=== PATIENT | female | born 1945 | race Caucasian/White ===

== ENCOUNTER 2016-10-31 09:26 | Inpatient (IN) | payer OTHER ==
[~2016-10-31 09:26] MED LIST: NS IV ONE; POVIDONE-IODINE 20 ML in SODIUM CL IRRIG SOLUTION 500 ML IRR ONE; ROPIVACAINE 0.2% 80 MG, EPINEPHrine 0.2 MG, KETOROLAC TROMETHAMINE 30 MG in BAG 0 ML IU ONE; TRANEXAMIC ACID IV ONE
[2016-10-31] MEDS ORDERED: ceFAZolin 1 GM/5 ML SYR ONE (11:01)
[2016-10-31] MEDS ORDERED: LR 1,000 ML IV ONE (11:11)
[2016-10-31] MEDS ORDERED: LIDOCAINE 1% 2 ML INJ ID PRN (11:11)
[2016-10-31] MEDS ORDERED: ceFAZolin 2 GM/DEXTROSE 100 ML IV ONE (11:45)
[2016-10-31] MEDS ORDERED: FAMOTIDINE 20 MG TAB PO ONE (11:45)
[2016-10-31] MEDS ORDERED: ACETAMINOPHEN 325 MG TAB PO ONE (11:45)
[2016-10-31] MEDS ORDERED: DEXAMETHASONE 4 MG/ML VIAL IVP ONE (11:45)
--- NOTE | 2016-10-31 12:38 | PDHPUP ---
History & Physical Update H&P update statement: This history and physical update is based on an assessment of the patient which was completed after admission or registration (within 24 hours), but prior to the surgery/procedure. H&P update: H&P reviewed & patient examined, no change in patient's condition since H&P completed
[2016-10-31] MEDS ORDERED: metFORMIN HCL 500 MG TAB PO ONE (12:45)
[2016-10-31] MEDS ORDERED: MIDAZOLAM 2 MG/2 ML VIAL ONE (13:07)
[2016-10-31] MEDS ORDERED: PROPOFOL/EMULSION 500 MG/50 ML BOTTLE IV ONE ×2 (13:09)
[2016-10-31] MEDS ORDERED: fentaNYL 100 MCG/2 ML INJ ONE ×2 (13:09→13:10)
[2016-10-31] MEDS ORDERED: ONDANSETRON 4 MG/2 ML VIAL IVP PRN ×2 (14:07→15:11)
[2016-10-31] MEDS ORDERED: fentaNYL 100 MCG/2 ML INJ IVP PRN (14:07)
[2016-10-31] MEDS ORDERED: LABETALOL HCL 50 MG/10 ML SYR IVP PRN (14:07)
[2016-10-31] MEDS ORDERED: NALOXONE HCL 0.4 MG/ML INJ IVP PRN (14:07)
[2016-10-31] MEDS ORDERED: DEXAMETHASONE 4 MG/ML VIAL IVP PRN (14:07)
[2016-10-31] MEDS ORDERED: HYDROCODONE/APAP 5/325 TAB PO PRN (14:07)
[2016-10-31] MEDS ORDERED: HYDROmorphONE/DILAUDID 1 MG/ML SYR IVP PRN (14:07)
[2016-10-31] MEDS ORDERED: LR 500 ML IV PRN (14:07)
--- NOTE | 2016-10-31 14:16 | PDANEPAE ---
ANE History of Present Illness 71 y/o diabetic, htn patient for Left hip arthroplasty. ANE Past Medical History - Cardiovascular History Hx Hypertension: Yes Hx Arrhythmias: No Hx Chest Pain: No Hx Coronary Artery / Peripheral Vascular Disease: No Hx CHF / Valvular Disease: No Hx Palpitations: No Cardiovascular History Comment: TOLD HAS ENLARGED HEART 2006. 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 JUNITO USES C-PAP - Neurologic History Hx Cerebrovascular Accident: No Hx Seizures: No Hx Dementia: No - Endocrine History Hx Diabetes: Yes Endocrine History Comment: NIDDM PAST 10 YEARS - Renal History Hx Renal Disorders: No - Liver History Hx Hepatic Disorders: No - Neurological & Psychiatric Hx Hx Neurological and Psychiatric Disorders: No - Cancer History Hx Cancer: No - Congenital Disorder History Hx Congenital Disorders: No - GI History Hx Gastrointestinal Disorders: Yes Gastrointestinal History Comment: CONSTIPATION. GERD - Other Health History Other Health History: DIABETIC NEUROPATHY. LUMBAR STENOSIS. UPON AWAKENING FEELS VERY TIRED AND BONES ACHE. VARIOUS FACIAL SKIN NODULES MANAGED BY RETAIL STORE MANAGER - Chronic Pain History Chronic Pain: Yes (LT HIP) - Surgical History Prior Surgeries: RT TOTAL HIP 2010. LUMBAR LAMINECTOMY. KATALINA. HYSTERECTOMY. REMVL BONE SPUR RT TOE. RT WRIST. SHAHANA CATARACT ANE Review of Systems - Exercise capacity METS (RN): 3 METS ANE Patient History - Allergies Allergies/Adverse Reactions: codeine [Codeine] Allergy (Mild, Verified 09/26/16 10:21) Vomiting - Home Medications Home Medications: DULoxetine [Cymbalta 60 MG (*)] 60 mg PO DAILY 09/26/16 [Last Taken Unknown] Gabapentin [Neurontin 300 MG (*)] 600 mg PO QID 09/26/16 [Last Taken 10/31/16 06 :00] Levothyroxine [Synthroid 25 mcg (*)] 25 mcg PO DAILY06 09/26/16 [Last Taken Unknown] Liraglutide [Victoza 3-Ehsan] 1.8 mg SQ DAILY 09/26/16 [Last Taken 10/30/16 10:00] Multivitamins [Multivitamin (*)] 1 each PO DAILY 09/26/16 [Last Taken 10/30/16 10:00] Olmesartan/Hydrochlorothiazide [Benicar Hct 40-25 mg Tablet] 1 each PO DAILY [Last Taken Unknown] Pantoprazole Sodium [Protonix 40mg (*)] 40 mg PO DAILY 09/26/16 [Last Taken 10:00] Rosuvastatin Calcium [Crestor 20mg (*)] 20 mg PO DAILY@18 09/26/16 [Last Taken 10/30/16 23:00] hydrOXYzine HCL [hydrOXYzine HCL (RX)] 25 mg PO HS 09/26/16 [Last Taken Unknown] metFORMIN HCL [Glucophage 1000 mg] 1,000 mg PO BIDMEAL 09/26/16 [Last Taken 10:00] - NPO status NPO Since - Liquids (Date): 10/30/16 NPO Since - Liquids (Time): 23:00 NPO Since - Solids (Date): 10/30/16 NPO Since - Solids (Time): 23:00 - Smoking Hx Smoking Status: Former smoker ANE Labs/Vital Signs - Vital Signs Blood Pressure: 107/69 Heart Rate: 96 Respiratory Rate: 16 O2 Sat (%): 92 Height: 154.94 cm Weight: 70.76 kg ANE Physical Exam - Airway Neck exam: decreased ROM Mouth exam: dentures - Pulmonary Pulmonary: no respiratory distress - Cardiovascular Cardiovascular: regular rate and rhythym - ASA Status ASA Status: III ANE Anesthesia Plan Anesthesia Plan: spinal
--- NOTE | 2016-10-31 15:00 | POSTOPPROG ---
Post Op Note Date of Operation: 10/31/16 Surgeon: Logan Park Appliance Service Technician: Ray Anesthesiologist: Shaina Gardner Anesthesia: IV Sedation, Spinal Post-op Diagnosis: Left hip severe degenerative arthritis. Procedure: Left total hip arthroplasty Inf/Abcess present in the surg proc area at time of surgery?: No EBL: 100-500
[2016-10-31] MEDS ORDERED: DIPHENOXYLATE/ATROPINE LOMOTIL 1 TAB PO PRN (15:11)
[2016-10-31] MEDS ORDERED: CYCLOBENZAPRINE 10 MG TAB PO PRN (15:11)
[2016-10-31] MEDS ORDERED: POLYETHYLENE GLYCOL 3350 17 GM PKT PO PRN (15:11)
[2016-10-31] MEDS ORDERED: TEMAZEPAM 15 MG CAP PO PRN (15:11)
[2016-10-31] MEDS ORDERED: ONDANSETRON DISINTEGRATING 4 MG TAB PO PRN (15:11)
[2016-10-31] MEDS ORDERED: PROMETHAZINE HCL 25 MG SUPPR PR PRN (15:11)
[2016-10-31] MEDS ORDERED: MAGNESIUM HYDROXIDE 30 ML UDCUP PO PRN (15:11)
[2016-10-31] MEDS ORDERED: diphenhydrAMINE 25 MG CAP PO PRN (15:11)
[2016-10-31] MEDS ORDERED: PROMETHAZINE HCL 25 MG/ML INJ IVP PRN (15:11)
[2016-10-31] MEDS ORDERED: KETOROLAC 30 MG/1 ML SDV IVP PRN (15:11)
[2016-10-31] MEDS ORDERED: PHARMACY PAIN CONSULT 1 EA MISC PRN (15:11)
[2016-10-31] MEDS ORDERED: traMADol 50 MG TAB PO PRN (15:11)
[2016-10-31] MEDS ORDERED: BISACODYL 10 MG SUPP PR PRN (15:11)
[2016-10-31] MEDS ORDERED: NS 500 ML IV PRN (15:11)
[2016-10-31] MEDS ORDERED: LACTULOSE 20 GM/30 ML UDCUP PO PRN (15:11)
--- NOTE | 2016-10-31 16:42 | POSTANESTH ---
Post Anesthetic Evaluation Respiratory Status: Normal, Stable Level of Consciousness/Mental Status: Can Participate in Eval Pain Control: Adequate, Prn Tx Ordered Nausea/Vomiting Control: Adequate, Prn Tx Ordered Complications Possibly Related to Anesthesia: None Noted (Hyperglycemia following holding of oral hypoglycemic medications. Resumed.)
[2016-10-31] MEDS: GABAPENTIN 300 MG CAP PO SCH ×2 (17:11→21:30)
[2016-10-31] MEDS ORDERED: ROSUVASTATIN CALCIUM 20 MG TAB PO SCH (18:00)
[2016-10-31] MEDS: metFORMIN HCL 500 MG TAB PO SCH (18:17)
[2016-10-31] MEDS: ACETAMINOPHEN 325 MG TAB PO SCH (18:17)
[2016-10-31] MEDS: LR 1,000 ML IV SCH (18:25)
[2016-10-31] MEDS ORDERED: hydrOXYzine HCL 25 MG TAB PO SCH (21:00)
[2016-10-31] MEDS: ceFAZolin 2 GM/DEXTROSE 100 ML IV SCH (21:29)
[2016-10-31] MEDS: FAMOTIDINE 20 MG TAB PO SCH (21:30)
[2016-10-31] MEDS: SENNOSIDES/DOCUSATE SODIUM TAB PO SCH (21:32)
[2016-10-31] MEDS: TRANEXAMIC ACID 650 MG TAB PO SCH (21:33)
[2016-10-31] MEDS: oxyCODONE IR 5 MG TAB PO PRN (21:39)
[2016-10-31] MEDS: ASPIRIN 325 MG TAB PO SCH (21:40)
[2016-11-01] MEDS: ACETAMINOPHEN 325 MG TAB PO SCH ×3 (00:19→11:08)
[2016-11-01] MEDS: LR 1,000 ML IV SCH (02:09)
[2016-11-01 04:37] LABS: HEMATOCRIT 32.6 % (38.0-47.0); HEMOGLOBIN 10.6 g/dL (12.6-16.3)
[2016-11-01] MEDS: ceFAZolin 2 GM/DEXTROSE 100 ML IV SCH (04:45)
[2016-11-01] MEDS: GABAPENTIN 300 MG CAP PO SCH ×2 (04:46→11:08)
[2016-11-01] MEDS: TRANEXAMIC ACID 650 MG TAB PO SCH (04:47)
[2016-11-01] MEDS: oxyCODONE IR 5 MG TAB PO PRN ×2 (04:50→11:08)
[2016-11-01] MEDS ORDERED: LEVOTHYROXINE 25 MCG TAB PO SCH (06:00)
--- NOTE | 2016-11-01 08:09 | GOP ---
[f rep st] OPERATIVE REPORT DATE OF OPERATION: 10/31/2016 SURGEON: Logan Park MD FIRE DISPATCHER: 1. Guillermo Pierce PAC. 2. Juanjo Mi CFA. ANESTHESIA: Combination of Marcaine, spinal, and IV sedation. ANESTHESIOLOGIST: Shaina Gardner MD. PREOPERATIVE DIAGNOSIS: Left hip arthritis. POSTOPERATIVE DIAGNOSIS: Left hip arthritis. PROCEDURE PERFORMED: Left total hip arthroplasty, ceramic femoral head on highly cross-linked polyethylene cup liner. FINDINGS: ESTIMATED BLOOD LOSS: About 300 mL. DESCRIPTION OF PROCEDURE: The patient was given 2 g of IV Ancef preoperatively within 60 minutes of surgery. She also received IV tranexamic acid at a dose of 20 mg/kg. She was placed on the operating room table and given spinal anesthesia with Marcaine by Dr. Gardner. She was placed supine and given IV sedation. A Villarreal catheter was not used. She wore a KATHERINE stocking and SCD on the nonoperative leg. She was rolled to the right lateral decubitus position. The position was secured with the peg board table attachment. An axillary roll was used, and all pressure points were carefully padded. I was careful to lock her pelvis in a rigid vertical position. Her perineum was isolated with plastic adhesive drapes. The left hip and left lower extremity were prepped with ChloraPrep. They were draped free using sterile sheets, stockinette, and Ioban plastic adhesive drapes. The [employer] time-out was performed to verify the correct surgical side and site and the correct patient identity. The [place] time-out was also performed. I made a 5-inch straight oblique posterolateral hip skin incision. Subcutaneous tissues were sharply divided, and hemostasis was obtained using electrocautery. The fascia shanice was identified and split along the axis of its fibers. I curved posteriorly and proximally, and split the fascia of the gluteus jaylan and bluntly split the muscle fibers in line with their orientation. The Charnley self-retaining retractor was inserted. Her sciatic nerve was located, partially exposed, and protected throughout the procedure. The external rotators and the posterior hip capsule were divided as separate layers at the base of the femoral neck, tagged, and reflected posteriorly. A smooth 8-inch Steinmann pin was inserted vertically into the ilium, superior to the acetabulum. An 8-inch drill bit was inserted vertically into the greater trochanter and parallel to the first pin. The distance between the 2 was measured for leg length reference. Her femoral head was dislocated posteriorly. The femoral neck was osteotomized at the appropriate level and inclination. I was careful to preserve all her anterior and posterior capsule. The remnant of her labrum was excised. I prepared the femur first. This allowed me to accounting manager assistant controller the amount of natural femoral neck anteversion. This, in turn, allowed me to later determine the correct amount of cup anteversion. She had about 10-12 degrees of natural femoral neck anteversion. The canal was opened first laterally with a box chisel. I reamed and broached sequentially up to a size 7. The size 7 broach was used as a trial stem. I was careful to lateralize adequately. Appropriate retractors were inserted to expose the acetabulum. The acetabulum was reamed sequentially up to 49 mm. I selected a 50 mm Eryn tritanium cluster hole hemispherical shell. This was tapped securely into place in the proper degree of inclination and anteversion. I used the transverse acetabular ligament and other acetabular bony landmarks to help me properly orient the cup. I inserted 1 supplemental fixation screw through the shell, 25 mm in length. I also inserted a screw in metal dome hole plug. I performed a series of trial reductions to determine length and stability. I concluded that the size 7 high offset stem with a -2.5 mm neck length, a 32 mm head and a flush trial liner gave me the proper combination of appropriate length and good anterior and posterior stability. The flush Eryn X3 highly cross-linked polyethylene liner was inserted and tapped securely into place. I chose the Eryn Secur-Fit Max stem and a size 7 with high offset. This was inserted press-fit and was very tight. I did 1 final trial reduction and confirmed that the -2.5 neck with a 32 mm head was the proper combination. The Eryn Biolox Delta ceramic head with an outside diameter of 32 mm and a neck length of -2.5 mm was tapped securely onto the clean trunnion. The acetabulum was irrigated and cleaned, and the hip was reduced 1 final time. She had excellent anterior and posterior stability and appropriate length. I used a high offset stem because that more accurately matched her preoperative anatomy and gave her better stability. Joint anesthetic cocktail, 40 mL, were injected into the capsule, the deep musculature, and the subcutaneous tissues along the skin edges. The joint was thoroughly irrigated 1 final time with a dilute Betadine solution. Her sciatic nerve was reinspected and looked unharmed. The external rotators and the posterior hip capsule were repaired in separate layers with #2 FiberWire sutures through drill holes in the greater trochanter. This provided a very strong posterior capsular and external rotator repair. The fascia shanice was closed first with a couple of [id number] #2 FiberWire sutures followed by a running #2 barbed Ethicon StrataFix PDO suture. The subcutaneous tissues were closed with a running 0 barbed Ethicon StrataFix Monoderm suture. The skin was closed with a running 3-0 barbed Ethicon StrataFix Monoderm subcuticular suture. The skin edges were reapproximated and sealed with Dermabond glue. The wound was covered with a strip of Telfa, and everything was held in place with a piece of clear plastic Tegaderm. A long-leg KATHERINE stocking and SCD were applied to her left lower extremity. She wore a stocking and SCD on the opposite leg during the procedure. An abduction pillow was placed between her knees. She was awakened from anesthesia and rolled to the supine position on her [facility]. She was taken to the PACU in satisfactory condition. There were no recognized intraoperative complications. COUNTS: The sponge and needle count were correct on 2 occasions. I used a [place] tritanium hemispherical press-fit cluster hole acetabular shell with an outside diameter of 50 mm. The liner was a [place] X3 flush highly cross-linked liner with an inside diameter of 32 mm. The femoral component was a high offset Eryn Secur-Fit Max stem in a size 7 and press- fit. The femoral head was a Eryn Biolox Delta ceramic head with a -2.5 mm neck length and a 32 mm outside diameter. Jericho Piecre and Juanjo Mi acted as surgical assistants. Their assistance was a medical necessity for safe completion of the procedure. Copy requested to: Dr. Samina Oliva /[id number]/MODL MTDD
[2016-11-01] MEDS: metFORMIN HCL 500 MG TAB PO SCH (08:48)
[2016-11-01] MEDS: ASPIRIN 325 MG TAB PO SCH (08:48)
[2016-11-01] MEDS: SENNOSIDES/DOCUSATE SODIUM TAB PO SCH (08:49)
[2016-11-01] MEDS: FAMOTIDINE 20 MG TAB PO SCH (08:50)
[2016-11-01] MEDS ORDERED: MULTIVITAMINS 1 EACH TAB PO SCH (09:00)
[2016-11-01] MEDS ORDERED: FERROUS SULFATE 140 MG TAB.ER PO SCH (09:00)
[2016-11-01] MEDS ORDERED: OLMESARTAN MEDOXOMIL 20 MG TAB PO SCH (09:00)
[2016-11-01] MEDS ORDERED: DULoxetine 60 MG CAP PO SCH (09:00)
[2016-11-01] MEDS ORDERED: HYDROCHLOROTHIAZIDE 25 MG TAB PO SCH (09:00)
[2016-11-01] MEDS ORDERED: Liraglutide [Victoza 3-Pak] 1.8 MG SQ SCH (09:00)
--- NOTE | 2016-11-01 10:08 | SOAPPROG ---
SOAP Progress Note Assessment/Plan: Assessment: Afebrile. Awake and alert. Moderate pain. The patient has been walking in the room. Her dressing is dry. She has mild subcutaneous swelling. H&H is adequate. Sciatic nerve is intact. Films look good. Plan: Up with PT today. Discharged later today. 11/01/16 10:07 Objective: Vital Signs Temp Pulse Resp BP Pulse Ox 36.9 C 94 14 103/64 96 11/01/16 07:39 11/01/16 07:39 11/01/16 07:39 11/01/16 08:49 11/01/16 07:39 Laboratory Results 11/01/16 04:22 10/31/16 11/01/16 11/02/16 05:59 05:59 05:59 Intake Total 5428 Output Total 600 300 Balance 4828 -300 ICD10 Worksheet Patient Problems: Problems Problem Status Onset Osteoarthritis of left hip Acute
[2016-11-01 12:17] VITALS: BP 104/63; PULSE 96; RESP 16; TEMP 97.7; O2SAT 92
--- NOTE | 2016-11-01 20:21 | GDS ---
[f rep st] DISCHARGE SUMMARY ADMISSION DIAGNOSIS: Left hip arthritis. DISCHARGE DIAGNOSIS: Left hip arthritis. OPERATIONS PERFORMED: 10/31/2016, a left total hip arthroplasty, ceramic on highly crosslinked poly ethylene. POSTOPERATIVE COMPLICATIONS: None. CONDITION ON DISCHARGE: Improved. DESCRIPTION OF HOSPITAL COURSE: The patient was admitted to the hospital on the morning of surgery. Her admission hemoglobin and hematocrit were 11.2 and 33.2. Electrolytes: BUN and creatinine wer e normal. The same day, under a combination of Marcaine, spinal, and IV sedation, she underwent a l eft total hip arthroplasty. Postoperatively, she was treated with multimodal DVT prophylaxis, inclu ding aspirin. On the first postoperative day, her hemoglobin and hematocrit were 10.6 and 32.6. Debora brannon was seen by Physical Therapy and made good progress with ambulation and stairs. By the time of denita jaimes, she was afebrile, her wound was clean and dry, and she was independent walking with a walke r. DISPOSITION: Patient discharged to her home. She will go to outpatient physical therapy. Continue aspirin 325 mg p.o. daily for 21 days. Use an abduction pillow in bed for 3 weeks. Use KATHERINE stocki ngs for 1 week. She has prescriptions for oxycodone and tramadol for pain control. I will see her back in the office on November 23, 2016. If there any problems, she is to call me at the office. Copy requested to: JOSE PANTOJA /[id number]/MODL
== END 2016-11-01 14:33 | disposition home or self-care (01) | DRG 470 ==
LOC: F3E 09:26 → EEVIPCON 09:26 → F3N 15:24
PROVIDERS: ADMIT Orthopaedic Surgery; ATTEND Orthopaedic Surgery
PROC: 0SRB04Z Replacement of Left Hip Joint with Ceramic on Polyethylene Synthetic Substitute, Open Approach (ICD-10-PCS; principal; 2016-10-31 12:45)
DX: M16.12 Unilateral primary osteoarthritis, left hip (principal); E11.40 Type 2 diabetes mellitus with diabetic neuropathy, unspecified; E78.00 Pure hypercholesterolemia, unspecified; K21.9 Gastro-esophageal reflux disease without esophagitis; I10 Essential (primary) hypertension; Z96.641 Presence of right artificial hip joint; Z87.891 Personal history of nicotine dependence
CPT/HCPCS: 97161-GP; 97165-GO; C1713; G8978-GP-CI; G8979-GP-CI; G8980-GP-CI; G8987-GO-CJ; G8988-GO-CI; J0171; J0690; J1100; J1885; J2250; J2704; J2795; J3010